=== PATIENT | male | born 1980 | race Hispanic/Latino ===

== ENCOUNTER 2018-05-10 04:31 | Emergency (ER) | payer OTHER, SELFPAY ==
[2018-05-10] MEDS ORDERED: Adacel (T-DAP) 0.5 ML VIAL ONE (04:46)
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
[2018-05-10] MEDS ORDERED: ISOVUE-370 76%-LOCM 1 ML ONE (14:54)
== END 2018-05-10 05:33 | disposition home or self-care (01) ==
LOC: ERS 04:31
DX: S20.212A Contusion of left front wall of thorax, initial encounter (principal); V89.2XXA Person injured in unspecified motor-vehicle accident, traffic, initial encounter
CPT/HCPCS: 71260; 74177; 90471; 90715; 96360; G0390